=== PATIENT | female | born 1990 | race Caucasian/White ===

== ENCOUNTER 2020-05-30 17:39 | Outpatient (NON) | payer SELFPAY | END 2020-05-30 17:40 | LOC: CHSLAB 17:41 | PROVIDERS: Visit Provider Nurse Practitioner Family | DX: N39.0 Urinary tract infection, site not specified (principal) | CPT/HCPCS: 87086; 87088 ==

== ENCOUNTER 2021-04-10 14:50 | Outpatient (CLI) | payer SELFPAY ==
[2021-04-10 17:08] LABS: SARS-CoV-2 RNA PCR Negative (Negative)
== END 2021-04-10 14:51 | disposition home or self-care (01) ==
LOC: CHSLAB 14:53
PROVIDERS: PCP Nurse Practitioner Family; Visit Provider Nurse Practitioner Family
DX: R09.81 Nasal congestion (principal); U07.1 COVID-19
CPT/HCPCS: C9803; U0003; U0005

== ENCOUNTER 2021-06-07 07:11 | Outpatient (CLI) | payer OTHER, SELFPAY ==
[2021-06-07 08:21] LABS: SARS-CoV-2 RNA PCR Negative (Negative)
== END 2021-06-07 07:12 | disposition home or self-care (01) ==
LOC: CHSLAB 07:12
PROVIDERS: PCP Nurse Practitioner Family; Visit Provider Nurse Practitioner Family
DX: Z78.9 Other specified health status (principal); Z20.822 Contact with and (suspected) exposure to COVID-19
CPT/HCPCS: C9803; U0003; U0005

== ENCOUNTER 2021-08-26 17:37 | Outpatient (CLI) | payer SELFPAY ==
[2021-08-26 18:53] LABS: Thyroid Stimulating Hormone 7.84 uIU/mL (0.36-3.74)
== END 2021-08-26 17:38 | disposition home or self-care (01) ==
LOC: CHSLAB 17:39
PROVIDERS: PCP Nurse Practitioner Family; Visit Provider Nurse Practitioner Family
DX: E03.9 Hypothyroidism, unspecified (principal)
CPT/HCPCS: 36415; 84443

== ENCOUNTER 2022-05-13 13:45 | Outpatient (CLI) | payer MEDICAID, SELFPAY ==
[2022-05-13 14:08] LABS: Basophils Absolute Auto 0.01 K/mm3 (0.00-0.10); Basophils Percent Auto 0.2 % (0.0-1.0); Eosinophils Absolute Auto 0.06 K/mm3 (0.02-0.50); Eosinophils Percent Auto 1.4 % (1.0-6.0); Hematocrit 40.6 % (35.0-49.0); Hemoglobin 13.3 g/dL (12.0-15.0); Immature Granulocyte Absolute 0.01 K/mm3 (0.00-0.00); Immature Granulocyte Percent A 0.2 % (0.0-0.0); Immature Platelet Fraction Pct 6.2 % (1.0-7.0); Lymphocytes Percent Auto 35.5 % (18.0-42.0); Mean Corpuscular HGB Conc 32.8 g/dL (32.0-36.0); Mean Corpuscular Volume 97.6 fL (78.0-102.0); Mean Platelet Volume 10.7 fl (9.2-11.8); Monocytes Absolute Auto 0.24 K/mm3 (0.10-0.90); Monocytes Percent Auto 5.7 % (2.0-11.0); Neutrophils Absolute Auto 2.4 K/mm3 (1.7-7.2); Platelet Count Result 145 K/mm3 (150-420); Red Blood Count 4.16 M/mm3 (4.20-5.40); Red Cell Distribution Width 12.2 % (11.6-14.4); White Blood Count 4.2 K/mm3 (4.8-10.8)
[2022-05-13 15:00] LABS: Alanine Aminotransferase 22 U/L (14-59); Albumin Level 3.8 g/dL (3.4-5.0); Alkaline Phosphatase 40 U/L (46-116); Anion Gap 9 mmol/L (8-16); Aspartate Amino Transferase 28 U/L (15-37); Bilirubin,Total 0.4 mg/dL (0.00-1.00); Blood Urea Nitrogen 12 mg/dL (7-18); CRP < 0.5 mg/dL (0.0-0.9); Calcium 8.5 mg/dL (8.5-10.1); Carbon Dioxide 28 mmol/L (21-32); Chloride 104 mmol/L (98-108); Cholesterol 173 mg/dL (0-200); Estimated Glomerular Filt Rate > 60; Folic Acid 15.7 ng/mL (8.6->20); Free T4 Free Thyroxine 0.83 ng/dL (0.76-1.46); Glucose 87 mg/dL (70-99); HDL Direct 71 mg/dL (40-60); Iron 59 ug/dL (50-170); LDL Cholesterol Calculated 79 mg/dL (<130); Osmolality Calculated 290 mOsm/kg (285-295); Percent Iron Saturation 14 % (12-57); Sodium 141 mmol/L (136-145); Thyroid Stimulating Hormone 4.07 uIU/mL (0.36-3.74); Total Protein 7.6 g/dL (6.4-8.2); Triglycerides 113 mg/dL (0-150); Vitamin B12 449 pg/mL (193-986)
[2022-05-13 15:01] LABS: Potassium 5.2 mmol/L (3.5-5.1)
[2022-05-17 21:34] LABS: Vitamin D 25 Hydroxy 39 ng/mL (30-100)
== END 2022-05-13 13:46 | disposition home or self-care (01) ==
LOC: CHSLAB 13:48
PROVIDERS: PCP Nurse Practitioner Family; Visit Provider Nurse Practitioner Family
DX: R53.83 Other fatigue (principal); E03.9 Hypothyroidism, unspecified; N93.9 Abnormal uterine and vaginal bleeding, unspecified; E66.9 Obesity, unspecified
CPT/HCPCS: 36415; 80053; 80061; 82306; 82607; 82746; 83540; 83550; 83735; 84439; 84443; 85025; 85055; 86140

== ENCOUNTER 2022-08-22 13:01 | Outpatient (CLI) | payer BC, MEDICAID, SELFPAY ==
[2022-08-22 13:22] LABS: Basophils Absolute Auto 0.04 K/mm3 (0.00-0.10); Basophils Percent Auto 0.6 % (0.0-1.0); Eosinophils Absolute Auto 0.08 K/mm3 (0.02-0.50); Eosinophils Percent Auto 1.3 % (1.0-6.0); Hematocrit 39.2 % (35.0-49.0); Immature Granulocyte Absolute 0.02 K/mm3 (0.00-0.00); Immature Granulocyte Percent A 0.3 % (0.0-0.0); Lymphocytes Absolute Auto 1.62 K/mm3 (1.10-4.50); Mean Corpuscular HGB Conc 33.2 g/dL (32.0-36.0); Mean Corpuscular Hemoglobin 31.9 pg (27.0-31.0); Mean Corpuscular Volume 96.3 fL (78.0-102.0); Monocytes Percent Auto 6.4 % (2.0-11.0); Neutrophils Absolute Auto 4.1 K/mm3 (1.7-7.2); Neutrophils Percent Auto 65.4 % (50.0-70.0); Platelet Count Result 185 K/mm3 (150-420); Red Blood Count 4.07 M/mm3 (4.20-5.40); Red Cell Distribution Width 11.9 % (11.6-14.4); White Blood Count 6.2 K/mm3 (4.8-10.8)
[2022-08-22 14:00] LABS: Alanine Aminotransferase 24 U/L (14-59); Albumin Level 3.8 g/dL (3.4-5.0); Alkaline Phosphatase 40 U/L (46-116); Anion Gap 7 mmol/L (8-16); Aspartate Amino Transferase 19 U/L (15-37); Bilirubin,Total 0.5 mg/dL (0.00-1.00); Blood Urea Nitrogen 11 mg/dL (7-18); Calcium 8.9 mg/dL (8.5-10.1); Carbon Dioxide 29 mmol/L (21-32); Chloride 106 mmol/L (98-108); Estimated Glomerular Filt Rate > 60; Free T4 Free Thyroxine 0.87 ng/dL (0.76-1.46); Glucose 79 mg/dL (70-99); Osmolality Calculated 292 mOsm/kg (285-295); Potassium 5.3 mmol/L (3.5-5.1); Sodium 142 mmol/L (136-145); Thyroid Stimulating Hormone 4.03 uIU/mL (0.36-3.74); Total Protein 7.1 g/dL (6.4-8.2)
== END 2022-08-22 13:02 | disposition home or self-care (01) ==
LOC: CHSLAB 13:05
PROVIDERS: PCP Nurse Practitioner Family; Visit Provider Nurse Practitioner Family
DX: E03.9 Hypothyroidism, unspecified (principal)
CPT/HCPCS: 36415; 80053; 84439; 84443; 85025

== ENCOUNTER 2022-08-27 07:05 | Outpatient (CLI) | payer BC, MEDICAID, SELFPAY ==
--- NOTE | 2022-08-27 07:16 | ECG_ITS ---
Measurements Intervals [place] Rate: 89 P: 19 VA: 143 QRS: 67 QRSD: 90 T: 42 QT: 350 QTc: 427 Interpretive Statements SINUS RHYTHM MINIMAL Q WAVES- ANTEROLAT/INF LEADS BORDERLINE ECG NO PREVIOUS ECG AVAILABLE FOR COMPARISON Electronically Signed On 08-27-2022 8:37:01 BARREL LATHE OPERATOR OUTSIDE by [place] D.O.
[2022-08-27 07:47] LABS: Potassium 4.4 mmol/L (3.5-5.1)
== END 2022-08-27 07:06 | disposition home or self-care (01) ==
LOC: CHSLAB 07:07
PROVIDERS: PCP Nurse Practitioner Family; Visit Provider Nurse Practitioner Family
DX: E87.5 Hyperkalemia (principal)
CPT/HCPCS: 36415; 84132; 93005

== ENCOUNTER 2022-11-05 11:19 | Outpatient (CLI) | payer BC, MEDICAID, SELFPAY ==
[2022-11-05 12:07] LABS: Influenza A QL RT-PCR Negative (Negative); Influenza B QL RT-PCR Negative (Negative); SARS-CoV-2 RNA PCR Negative (Negative)
== END 2022-11-05 11:20 | disposition home or self-care (01) ==
LOC: CHSLAB 11:21
PROVIDERS: PCP Nurse Practitioner Family; Visit Provider Nurse Practitioner Family
DX: R53.83 Other fatigue (principal); Z20.822 Contact with and (suspected) exposure to COVID-19
CPT/HCPCS: 87636

== ENCOUNTER 2022-11-14 13:46 | Outpatient (NON) | payer BC, MEDICAID, SELFPAY | END 2022-11-14 13:47 | disposition home or self-care (01) | PROVIDERS: Visit Provider Nurse Practitioner Family | DX: N89.8 Other specified noninflammatory disorders of vagina (principal) | CPT/HCPCS: 36415; 81513; 87070; 87147; 87624; 88175; G0145 ==

== ENCOUNTER 2022-12-24 12:32 | Outpatient (CLI) | payer BC, MEDICAID, SELFPAY ==
[2022-12-24 12:46] LABS: Basophils Absolute Auto 0.03 K/mm3 (0.00-0.10); Basophils Percent Auto 0.6 % (0.0-1.0); Eosinophils Absolute Auto 0.06 K/mm3 (0.02-0.50); Eosinophils Percent Auto 1.1 % (1.0-6.0); Hematocrit 37.7 % (35.0-49.0); Hemoglobin 13.1 g/dL (12.0-15.0); Immature Granulocyte Absolute 0.02 K/mm3 (0.00-0.00); Immature Granulocyte Percent A 0.4 % (0.0-0.0); Lymphocytes Absolute Auto 2.01 K/mm3 (1.10-4.50); Lymphocytes Percent Auto 37.9 % (18.0-42.0); Mean Corpuscular HGB Conc 34.7 g/dL (32.0-36.0); Mean Corpuscular Hemoglobin 32.3 pg (27.0-31.0); Mean Corpuscular Volume 93.1 fL (78.0-102.0); Mean Platelet Volume 9.3 fl (9.2-11.8); Monocytes Absolute Auto 0.25 K/mm3 (0.10-0.90); Monocytes Percent Auto 4.7 % (2.0-11.0); Neutrophils Absolute Auto 2.9 K/mm3 (1.7-7.2); Neutrophils Percent Auto 55.3 % (50.0-70.0); Platelet Count Result 266 K/mm3 (150-420); Red Blood Count 4.05 M/mm3 (4.20-5.40); Red Cell Distribution Width 11.2 % (11.6-14.4); White Blood Count 5.3 K/mm3 (4.8-10.8)
[2022-12-24 12:55] LABS: Hemoglobin A1C 5.4 % (<5.7)
[2022-12-24 13:57] LABS: Alanine Aminotransferase 47 U/L (14-59); Albumin Level 3.6 g/dL (3.4-5.0); Alkaline Phosphatase 47 U/L (46-116); Anion Gap 10 mmol/L (8-16); Aspartate Amino Transferase 19 U/L (15-37); Bilirubin,Total 0.2 mg/dL (0.00-1.00); Blood Urea Nitrogen 11 mg/dL (7-18); Calcium 8.8 mg/dL (8.5-10.1); Carbon Dioxide 27 mmol/L (21-32); Chloride 106 mmol/L (98-108); Cholesterol 188 mg/dL (0-200); Estimated Glomerular Filt Rate > 60; Glucose 78 mg/dL (70-99); HDL Direct 52 mg/dL (40-60); LDL Cholesterol Calculated 112 mg/dL (<130); Osmolality Calculated 294 mOsm/kg (285-295); Potassium 4.5 mmol/L (3.5-5.1); Sodium 143 mmol/L (136-145); Thyroid Stimulating Hormone 1.61 uIU/mL (0.36-3.74); Total Protein 7.2 g/dL (6.4-8.2); Triglycerides 118 mg/dL (0-150)
== END 2022-12-24 12:33 | disposition home or self-care (01) ==
LOC: CHSLAB 12:37
PROVIDERS: PCP Nurse Practitioner Family; Visit Provider Nurse Practitioner Family
DX: E03.9 Hypothyroidism, unspecified (principal); E66.9 Obesity, unspecified; R53.83 Other fatigue; Z79.899 Other long term (current) drug therapy
CPT/HCPCS: 36415; 80053; 80061; 83036; 84443; 85025

== ENCOUNTER 2023-01-28 16:34 | Outpatient (CLI) | payer MEDICAID, SELFPAY ==
[2023-01-28 17:06] LABS: Monoscreen Negative (Negative); Negative Monotest Control Negative (Negative); Positive Monotest Control Positive (Positive)
[2023-01-28 17:28] LABS: Strep Group A RT-PCR Not Detected (Negative)
== END 2023-01-28 16:35 | disposition home or self-care (01) ==
LOC: CHSLAB 16:35
PROVIDERS: PCP Nurse Practitioner Family; Visit Provider Nurse Practitioner Family
DX: R49.0 Dysphonia (principal)
CPT/HCPCS: 36415; 86308; 87651

== ENCOUNTER 2023-02-17 11:18 | Outpatient (CLI) | payer MEDICAID, SELFPAY ==
--- NOTE | ~2023-02-17 | XR_ITS ---
XR chest 2V w apical lordotic DATE: 02/17/2023 11:42 INDICATION: Right vocal cord paralysis. TECHNIQUE: 3 views including apical lordotic COMPARISON: None FINDINGS: Normal heart size. No hilar or mediastinal enlargement. No pulmonary infiltrate or consolid ation, pleural effusion or pulmonary vascular congestion or pneumothorax. IMPRESSION: No active cardiopulmonary disease Reviewed, dictated and finalized at Location A. Reviewed, dictated and finalized at location L.
== END 2023-02-17 11:19 | disposition home or self-care (01) ==
LOC: CHSIMG 11:20
PROVIDERS: PCP Nurse Practitioner Family; Visit Provider Otolaryngology
DX: J38.01 Paralysis of vocal cords and larynx, unilateral (principal)
CPT/HCPCS: 71047

== ENCOUNTER 2023-11-04 15:54 | Outpatient (CLI) | payer SELFPAY ==
[2023-11-04 16:53] LABS: Thyroid Stimulating Hormone 6.47 uIU/mL (0.36-3.74)
== END 2023-11-04 15:55 | disposition home or self-care (01) ==
LOC: CHSLAB 15:55
PROVIDERS: PCP Nurse Practitioner Family; Visit Provider Nurse Practitioner Family
DX: E03.9 Hypothyroidism, unspecified (principal)
CPT/HCPCS: 36415; 84443

== ENCOUNTER 2024-02-04 07:19 | Outpatient (CLI) | payer SELFPAY | END 2024-02-04 07:20 | disposition home or self-care (01) | LOC: CHSLAB 07:20 | PROVIDERS: PCP Nurse Practitioner Family; Visit Provider Nurse Practitioner Family | DX: E03.9 Hypothyroidism, unspecified (principal) | CPT/HCPCS: 36415; 84443 ==

== ENCOUNTER 2025-02-09 15:27 | Outpatient (CLI) | payer SELFPAY ==
--- OUTSIDE RECORDS SUMMARY | 2025-02-09 15:30 | XMS_ITS | Clinical Summary ---
Author Organization [facility] Address [address] [place] [address] Care Team Providers Care Assembler Musical Instruments Name Role Phone Unavailable Primary Care Provider Unavailabl e Source Comments [facility],non-owned Affiliates and Associated Physician Practices is amultiple site organization consisting of ambulatory clinics and hospital sitesin [place], [place], [place] and [place]. This disclosure is being madepursuant to the Care Everywhere program and may not contain all information available regarding this patient. Last updated 18.[facility] Allergies No known active allergies Medications * Be aware that medications may not be up to date on this document. Alwaysverify current medications with the patient. No known medications Social History Tobacco Use Types Packs/Day Years Used Date Smoking Tobacco: Every Day Cigarettes Alcohol Use Standard Drinks/Week Comments Yes 8.3 (1 standard drink = 0.6 oz p ure alcohol) Comments Unknown Sex and Gender Information Value Date Recorded Sex Assigned at Not on file Legal Sex Female 10:41 AM CDT Gender Identity Not on file Sexual Orientation Not on file Last Filed Vital Signs Vital Sign Reading Time Taken Comments Blood Pressure 114/62 03/30/2013 2:28 PM CDT Pulse 88 03/30/2013 2:28 PM CDT Temperature 36.8 C (98.2 F) 03/30/2013 2:28 PM CDT Respiratory Rate 18 03/30/2013 2:28 PM CDT Oxygen Saturation 99% 03/30/2013 2:28 PM CDT room air Inhaled Oxygen Concentration - - Weight 86.2 kg (190 lb) 03/30/2013 10:53 AM CDT Height 152.4 cm (5') 03/30/2013 10:53 AM CDT Body Mass Index 37.11 03/30/2013 10:53 AM CDT Plan of Treatment Health Maintenance Due Date Last Done Comments HIV SCREENING 01/01/2004 HEPATITIS C SCREENING 12/27/2006 DTAP/TDAP/TD VACCINES (1 - Tdap) 01/01/2008 HEPATITIS B VACCINE (1 of 3 - 19+ 3-dose series) 01/01/2008 PNEUMOCOCCAL VACCINE (1 of 2 - PCV) 01/01/2008 PAP SMEAR 2009 HPV VACCINE (1 - 3-dose SCDM series) 01/01/2016 COVID-19 VACCINE (1 - 2023-2 5 season) 2024 DEPRESSION SCREENING 06/22/2024 INFLUENZA VACCINE (#1) 2025 ZOSTER VACCINE (1 of 2) 2038 HIB VACCINE Aged Out No longer eligi ble based on patient's age to complete this topic MENINGOCOCCAL (Group B) VACC INE SHARED DECISION-MAKING Aged Out No longer eligibl e based on patient's age to complete this topic MENINGOCOCCAL GROUPS A/C/Y/W VACCINE Aged Out No longer eligible b ased on patient's age to complete this topic
--- OUTSIDE RECORDS SUMMARY | 2025-02-09 15:30 | XMS_ITS | Clinical Summary ---
Author Organization [facility] Address [facility] [place] [address] Care Team Providers Care Testing Engineer Name Role Phone Perico Echols MD Primary Care Provider [phone] Allergies No known active allergies Medications buPROPion SR (WELLBUTRIN SR) 150 MG 12 hr tablet Take 1 tablet (150 mg total) by mouth 2 (two) times daily. 3 Active cyclobenzaprine (FLEXERIL) 5 MG tablet Take 1 tablet (5 mg total) by mouth 3 (three) times daily as needed. 2 Active hydrOXYzine (ATARAX) 10 MG tablet Take 1 tablet (10 mg total) by mouth every 6 (six) hours as needed. 3 Active levothyroxine (SYNTHROID) 50 MCG tablet Take 1 tablet (50 mcg total) by mouth every morning. 3 Active TRI-SPRINTEC 0.18/0.215/0.25 MG-35 MCG tablet Take 1 tablet by mouth daily. 3 Active ondansetron (ZOFRAN-ODT) 4 MG disintegrating tablet Take 1 tablet (4 mg total) by mouth every 8 (eight) hours as needed. 3 Active traZODone (DESYREL) 150 MG tablet Take 1 tablet (150 mg total) by mouth daily. 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 Gender Identity Not on file Sexual Orientation Not on file Last Filed Vital Signs Vital Sign Reading Time Taken Comments Blood Pressure 105/79 12/04/2022 7:15 AM CDT Pulse 84 12/04/2022 7:15 AM CDT Temperature 36.7 C (98.1 F) 12/04/2022 7:15 AM CDT Respiratory Rate 16 12/04/2022 7:15 AM CDT Oxygen Saturation 98% 12/04/2022 7:15 AM CDT Inhaled Oxygen Concentration - - Weight 66 kg (145 lb 9.6 oz) 12/03/2022 5:53 PM CDT Height 152.4 cm (5') 12/03/2022 5:53 PM CDT Body Mass Index 28.44 12/03/2022 5:53 PM CDT Plan of Treatment Health Maintenance Due Date Last Done Comments Cervical Cancer Screening Pa p Smear (Age 30 to 64) Every 3 Years 1988 Annual Physical 01/01/1992 Hepatitis C 2006 DTaP, Tdap and Td Vaccines ( 1 - Tdap) 01/01/2008 Hepatitis B Vaccines (1 of 3 - 19+ 3-dose series) 01/01/2008 HPV Vaccines (1 - 3-dose SCD M series) 01/01/2016 COVID-19 Vaccine (2023-2 5 season) 2024 Cervical Cancer Screening Pa p with HPV Testing (Age 30 to 64) Every 5 Years 11/15/2027 11/14/2022 Cervical Cancer Screening with HPV 11/15/2027 Meningococcal B Vaccine Aged Out No l onger eligible based on patient's age to complete this topic Meningococcal Vaccine Aged Out No judy naye eligible based on patient's age to complete this topic Pneumococcal Vaccine: Pediat rics (0 to 5 Years) and At-Risk Patients (6 to 49 Years) Aged Out No longer eligi ble based on patient's age to complete this topic RSV Immunizations Under 20 Months Aged Out No longer eligible based on patient's age to complete this topic Procedures Procedure Name Priority Date/Time Associated Diagnosis Comments HUMAN PAPILLOMAVIRUS, HIGH-RISK TYPES Routine 11/14/2022 8:00 AM CDT from Last 3 Months or Most Recently Relevant to Health Maintenance Results * HUMAN PAPILLOMAVIRUS, HIGH-RISK TYPES (11/14/2022 8:00 AM CDT) SPEC DESCRIPTION CERVIX 11/26/19 2:53 PM CDT [facility] HPV DNA HIGH RISK NEGATIVE NEGATIVE 11/26/2022 1:32 PM CDT [facility] Comment:SEE CYTOLOGY REPORT 11/14/2022 8:00 AM CDT Kaleb Hong RAND MAKER PATHOLOGY/CYTOLOGY ORDERABLES Final Result [facility] [address] [place] [address], from Last 3 Months or Most Recently Relevant to Health Maintenance Insurance MEDICAID Care Teams Testing Engineer Relationship Specialty Start Date End Date Perico Echols MD [address] [place] [address] PCP - General FAMILY PRACTICE 12/03/22
[2025-02-09 16:36] LABS: Thyroid Stimulating Hormone Reflex 3.090 uIU/mL (0.465-4.68)
== END 2025-02-09 15:28 | disposition home or self-care (01) ==
LOC: CHSLAB 15:28
PROVIDERS: PCP Nurse Practitioner Family; Visit Provider Nurse Practitioner Family
DX: E03.9 Hypothyroidism, unspecified (principal)
CPT/HCPCS: 36415; 84443

== ENCOUNTER 2025-03-17 10:40 | Outpatient (NON) | payer SELFPAY ==
--- NOTE | 2025-03-17 | CY_PTH ---
PATIENT: Eduarda Tovar LOC: [facility] U#:[id number] AGE/SX: 34/F ROOM: RE03/17/[address]: Kaleb Hong APRN : 1990 BED: DIS: 03/17/2025 SPEC #: [id number] RECD: 03/17/25 10:45 STATUS: REX RESidney #: [id number] ELIZABETH: 03/17/25 00:[address]: Kaleb Hong DEPT: [facility] Cytology RECD BY: Kayley Corrales MLT, ([facility] Tissues: A - Pap Smear Procedures: Pap Smear
--- OUTSIDE RECORDS SUMMARY | 2025-03-17 10:43 | XMS_ITS | Clinical Summary ---
Author Organization [facility] Address [address] [place] [address] Care Team Providers Care Cherry Sorter Name Role Phone Unavailable Primary Care Provider Unavailabl e Source Comments [facility],non-owned Affiliates and Associated Physician Practices is amultiple site organization consisting of ambulatory clinics and hospital sitesin [place], [place], [place] and [place]. This disclosure is being madepursuant to the Care Everywhere program and may not contain all information available regarding this patient. Last updated 18.[facility] Allergies No known active allergies Medications * [...] VACCINE (1 - 3-dose SCDM series) 01/01/2016 DEPRESSION SCREENING 06/22/2024 COVID-19 VACCINE (1 - 2023-2 5 season) 2025 INFLUENZA VACCINE (#1) 2025 ZOSTER VACCINE (1 [...]
--- OUTSIDE RECORDS SUMMARY | 2025-03-17 10:43 | XMS_ITS | Clinical Summary ---
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 [address], from Last 3 Months or Most Recently Relevant to Health Maintenance Insurance MEDICAID Care Teams Combination Technician Relationship Specialty Start Date End Date Perico Echols MD [address] [place] [address] PCP - General FAMILY PRACTICE 12/03/22
--- OUTSIDE RECORDS SUMMARY | 2025-03-17 10:43 | XMS_ITS | Encounter Summary ---
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
[2025-03-18 15:51] LABS: Trichomonas Vag PCR NOT DETECTED (NOT DETECTE)
== END 2025-03-17 10:41 | disposition home or self-care (01) ==
LOC: CHSLAB 10:41
PROVIDERS: Visit Provider Nurse Practitioner Family
DX: Z11.4 Encounter for screening for human immunodeficiency virus [HIV] (principal); Z12.4 Encounter for screening for malignant neoplasm of cervix; Z11.51 Encounter for screening for human papillomavirus (HPV); Z11.8 Encounter for screening for other infectious and parasitic diseases; Z11.3 Encounter for screening for infections with a predominantly sexual mode of transmission
CPT/HCPCS: 87101; 87661; 87798; 88175; G0145